=== PATIENT | female | born 2000 | race Caucasian/White ===

== ENCOUNTER 2019-09-07 23:50 | Emergency (ER) | payer OTHER ==
[~2019-09-07] VITALS: Ht 165.1 cm; Wt 61.2 kg
[2019-09-08 00:04] VITALS: BP 104/71
[2019-09-08] MEDS ORDERED: ONDANSETRON 4 MG ODT PO ONE (00:05)
--- NOTE | 2019-09-08 00:08 | NUR ---
PT AMBULATED TO BED #2.
--- NOTE | 2019-09-08 00:30 | NUR ---
19 YEAR OLD FEMALE COMPLAINS OF FEELING LIKE PASSING OUT SINCE THE MORNING. PT DENIES N/V/D. PT STATES SHE HAS A HEADACHE. PT AOX4, BREATHING EVEN AND UNLABORED, SKIN WARM AND DRY. PT STATES 17 WEEKS , HEART RATE 195. BED IN LOWEST POSITION, LOCKED, BED RAIL UPX1. PMH - DENIES ALLERGIES - NKA
--- NOTE | 2019-09-08 00:35 | NUR ---
DR STEWART AT BEDSIDE
[2019-09-08 00:45] VITALS: BP 105/79
--- NOTE | 2019-09-08 00:45 | NUR ---
Patient discharged with v/s stable. Written and verbal after care instructions about urinary tract infection given and explained. Patient verbalized understanding. Ambulatory with steady gait. All questions addressed prior to discharge. Advised to follow up with PMD.
== END 2019-09-08 00:45 | disposition home or self-care (01) ==
LOC: MED 23:50
DX: O23.42 Unspecified infection of urinary tract in pregnancy, second trimester (principal); O21.8 Other vomiting complicating pregnancy; Z3A.18 18 weeks gestation of pregnancy; Z98.890 Other specified postprocedural states
CPT/HCPCS: 81002; 81025; 99282